=== PATIENT | male | born 1955 | race Caucasian/White ===

== ENCOUNTER 2019-05-27 21:21 | Emergency (ER) | payer BC, SELFPAY ==
[2019-05-27 21:39] VITALS: BP 154/86; PULSE 81; RESP 14; TEMP 37.3; O2SAT 95
--- NOTE | 2019-05-27 23:27 | ED_ITS ---
HPI - Ear Problem General Chief complaint: Ear Stated complaint: R ear and R side of face swelling, multp complaint Time Seen by Provider: 05/27/19 22:56 Source: patient Mode of arrival: Ambulatory History of Present Illness HPI Narrative: 63-year-old gentleman who has not seen a healthcare provider for at least 3 years complains of increasing pain to the right ear as well as dyspnea that is been stable over the last 3 years but causes him significant difficulty was simply walking across the room. He also has a number of complaints all related to primary care and he would like to reestablish with primary care physician. Regarding his ear, for the last 2 weeks he has had a clear discharge from the ear without noted hearing loss fevers or significant pain. Over the last 24 hours he has developed increasing pain involving mostly the right lower lobe but extending into the skin and down to the angle of the jaw. He has noticed some general myalgias but no significant fevers. Related Data Previous Rx's Medication Instructions Recorded albuterol sulfate 2 inhalation INHALATION Q6H PRN #1 05/27/19 each ciprofloxacin HCl 500 mg PO BID #6 tab 05/27/19 Allergies Allergy/AdvReac Type Severity Reaction Status Date / Time Opioids - Morphine Analogues Allergy Vomiting Verified 05/27/19 23:50 Penicillins Allergy Anaphylaxis Verified 05/27/19 23:50 Review of Systems Review of Systems Narrative: He is dyspneic at baseline with significant wheeze. He stopped smoking 3 years ago after being diagnosed with COPD and told that he only had 60% lung function. Describes no orthopnea, no lower extremity edema, no nausea, vomiting, diarrhea. No hearing loss. Remainder of review is otherwise unremarkable Patient History Medical History (Updated 05/28/19 @ 02:30 by Janey Hamm MD) COPD (chronic obstructive pulmonary disease) (Acute) Social History Smoking Status: Never smoker Smoking Status: Never smoker Exam Narrative Exam Narrative: General: Alert appropriate in no acute distress HEENT: Right ear has some dried clear discharge. Examining down the canal again dry discharge along the base of the canal with a cloudy appearing tympanic membrane without bulging or erythema behind. No obvious new discharge is appreciated. His external ear on the right side is more swollen than the left particularly over the lower lobe with moderate tenderness to palpation. He has some extending erythema coming from the lower lobe down onto the angle of the jaw approximately half a cm past where the ear lobe connects to the face. He does not have mastoid tenderness. He does have cervical adenopathy on the right side that is mild. Respiratory: Able to speak in full sentences, no obvious respiratory distress, scattered wheezes throughout all lung gaspar without rhonchi Cardiac: Regular rate and rhythm without murmurs Skin: No obvious rashes, warm and dry Neurologic: Grossly intact no obvious asymmetries or abnormalities Psych, appropriate insight and affect, cooperative Initial Vital Signs Initial Vital Signs: Vital Signs Temperature 99.1 F 05/27/19 21:39 Pulse Rate 81 05/27/19 21:39 Respiratory Rate 14 05/27/19 21:39 Blood Pressure 154/86 H 05/27/19 21:39 Pulse Oximetry 95 05/27/19 21:39 Course Orders Ordered: Discontinued Medications Levofloxacin (Levaquin) 750 mg PO NOW ONE Stop: 05/27/19 23:39 Last Admin: 05/27/19 23:52 Dose: 750 mg Documented by: CHAS Vital Signs Vital signs: Vital Signs - 8 hr 05/27/19 21:39 Temperature 99.1 F Pulse Rate 81 Respiratory Rate 14 Blood Pressure 154/86 H Pulse Oximetry 95 Medical Decision Making Medical Records Medical records reviewed: Yes I reviewed the patient's medical records. MDM Narrative Medical decision making narrative: He appears to have had a otitis media that has resolved in the last couple of days no longer red and no longer draining. He clearly has a developing otitis externa with erythema and cellulitis extending just passed the ear lobe without evidence of mastoiditis. He has number questions regarding basic primary care including diabetic testing, lipid testing, cardiac testing, COPD care. I have encouraged him to follow-up with our outpatient care coordinators to establish a primary care physician now that he does have insurance. In the meantime will place him on levofloxacin for presumed otitis externa. He is safe for home discharge Discharge Plan Departure Patient Disposition: Home Clinical Impression: Otitis externa Qualifiers: Otitis externa type: unspecified type Chronicity: acute Laterality: right Qualified Code(s): H60.501 - Unspecified acute noninfective otitis externa, right ear COPD (chronic obstructive pulmonary disease) Qualifiers: COPD type: unspecified COPD Qualified Code(s): J44.9 - Chronic obstructive pulmonary disease, unspecified Discharge Date/Time: 05/27/19 23:57 Instructions: DI for Otitis Externa Activity Restrictions/Additional Instructions: Thank you for coming in today I can see that your ear was draining and there still is some dried fluid in the inner ear canal however it does not appear to still be draining and I am not seeing evidence of a middle ear infection. The swelling of your ear lobe with the slight redness that is extending just behind your ear is a bacterial infection and does need antibiotics. I have given you the 1st dose of Levaquin here in the emergency department and an nav tional 6 days to complete a week's worth of medicine. If you are developing increasing fevers, worsening ear symptoms, increasing redness down your face or other changing symptoms it is appropriate to return to the ER for further evaluation I have given you a prescription for an albuterol inhaler for your COPD. This is a temporizing measure only and you need to establish care with a primary care physician to maximize treatment of your chronic pulmonary disease. I have given you card to contact the Health measurement coordinator at [phone], they can help direct you to a primary care physician I hope you heal quickly Prescriptions: New ciprofloxacin HCl 500 mg tablet 500 mg PO BID Qty: 6 RF: 0 albuterol sulfate 90 mcg/actuation aerosol powdr breath activated 2 inhalation INHALATION Q6H PRN (Reason: shortness of breath or wheezing) Qty: 1 RF: 0
[2019-05-27] MEDS: levoFLOXacin 250 MG TABLET 750 MG PO (23:52)
== END 2019-05-27 23:57 | disposition home or self-care (01) ==
PROVIDERS: Emergency Provider Emergency Medicine
DX: H60.501 Unspecified acute noninfective otitis externa, right ear (principal); J44.9 Chronic obstructive pulmonary disease, unspecified
CPT/HCPCS: 99283